=== PATIENT | female | born 1955 | race Hispanic/Latino ===

== ENCOUNTER 2021-01-08 16:54 | Emergency (ER) | payer SELFPAY ==
[2021-01-08 19:08] LABS: Bacteria,Urine 1+ /HPF (Negative); Bilirubin,Urine NEG (Negative); Blood,Urine NEG (Negative); Color,Urine Yellow (Yellow); Mucus,Urine FEW /HPF; Protein,Urine <15 mg/dL mg/dL (Negative); Urobilinogen,Urine < 2.0 mg/dL (<2.0)
--- NOTE | 2021-01-08 19:19 | XRay Report ---
Lumbar spine-3 views INDICATION: low back pain. COMPARISON: None. IMPRESSION: Mild levoscoliosis centered at L1. Grade 1 anterolisthesis of L4 on L5 and grade 1 retro listhesis of L1 on L2. 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 No acute osseous or soft tissue abnormality. Signer Name: Ryan Beltran MD Signed: 01/08/2021 7:15 PM Workstation Name: [id number]
[2021-01-08] MEDS ORDERED: CYCLOBENZAPRINE 10 MG TAB PO ONE (19:30)
[2021-01-08] MEDS ORDERED: dexAMETHasone 4 MG/ML VIAL IM ONE (19:30)
--- NOTE | 2021-01-08 19:33 | Emergency Department Report ---
ED Back Pain/Injury HPI - General Chief Complaint: Back Pain/Injury Stated Complaint: BACK SPASM Time Seen by Provider: 01/08/21 18:40 Source: patient Mode of arrival: Ambulatory Limitations: No Limitations - History of Present Illness Initial Comments: Patient is a 65-year-old female presents emergency room with complaints of bilateral lower back pain that began 2 weeks ago. She describes it as a back ache and states that she has back spasms. She denies any fall or injury. She states a week ago she went to [facility] and was given a prescription for Tylenol with codeine and Robaxin and states that she took all the medication but continues to have the pain. She denies any fever, nausea, vomiting, diarrhea, abdominal pain, numbness, weakness, bowel or bladder incontinence, radiation of the pain, saddle numbness, urinary symptoms. Past medical history depression. No allergies to medications. - Related Data Previous Rx's Medication Instructions Recorded Last Taken Type Loratadine (Nf) [Claritin (Nf)] 10 mg PO DAILY #30 tablet 03/17/14 Unknown Rx Naproxen [Naprosyn] 250 mg PO BID #20 tablet 03/17/14 Unknown Rx Nystatin [Nystop Powder] 1 applic TP QDAY #1 box 03/17/14 Unknown Rx Meloxicam [Mobic] 7.5 mg PO QDAY #20 tablet 01/08/21 Unknown Rx methOCARBAMOL [Robaxin TAB] 500 mg PO BID PRN #20 tab 01/08/21 Unknown Rx traMADoL [Ultram 50 MG tab] 50 mg PO Q6HR PRN #12 tablet 01/08/21 Unknown Rx Allergies Allergy/AdvReac Type Severity Reaction Status Date / Time Penicillins Allergy Unknown Verified 12/06/13 23:41 ED Review of Systems ROS: Stated complaint: BACK SPASM Other details as noted in HPI Comment: All other systems reviewed and negative ED Past Medical Hx - Past Medical History Previous Medical History?: Yes Hx Psychiatric Treatment: Yes (depression) Additional medical history: states tetanus vaccine is up to date - Surgical History Past Surgical History?: Yes Additional Surgical History: TUBAL LIGATION - Social History Smoking Status: Never Smoker Substance Use Type: None - Medications Home Medications: Home Medications Medication Instructions Recorded Confirmed Last Taken Type Loratadine (Nf) [Claritin (Nf)] 10 mg PO DAILY #30 tablet 03/17/14 Unknown Rx Naproxen [Naprosyn] 250 mg PO BID #20 tablet 03/17/14 Unknown Rx Nystatin [Nystop Powder] 1 applic TP QDAY #1 box 03/17/14 Unknown Rx Meloxicam [Mobic] 7.5 mg PO QDAY #20 tablet 01/08/21 Unknown Rx methOCARBAMOL [Robaxin TAB] 500 mg PO BID PRN #20 tab 01/08/21 Unknown Rx traMADoL [Ultram 50 MG tab] 50 mg PO Q6HR PRN #12 tablet 01/08/21 Unknown Rx ED Physical Exam - General Limitations: No Limitations General appearance: alert, in no apparent distress - Head Head exam: Present: atraumatic, normocephalic - Eye Eye exam: Present: normal appearance - ENT ENT exam: Present: mucous membranes moist - Neck Neck exam: Present: normal inspection, full ROM. Absent: tenderness, meningismus - Respiratory Respiratory exam: Present: normal lung sounds bilaterally. Absent: respiratory distress, wheezes, rales, rhonchi, stridor, chest wall tenderness, accessory muscle use, decreased breath sounds, prolonged expiratory - Cardiovascular Cardiovascular Exam: Present: regular rate, normal rhythm, normal heart sounds. Absent: systolic murmur, diastolic murmur, rubs, gallop - Back Exam Back exam: Present: normal inspection, full ROM, paraspinal tenderness (bilateral lumbar paraspinal muscular ttp, no midline C-spine, T-spine or L- spine ttp, no step offs, no deformities). Absent: vertebral tenderness - Neurological Exam Neurological exam: Present: alert, oriented X3, CN II-XII intact, normal gait. Absent: motor sensory deficit - Psychiatric Psychiatric exam: Present: normal affect, normal mood - Skin Skin exam: Present: warm, dry, intact ED Course Vital Signs 01/08/21 01/08/21 17:07 20:30 Temperature 98.1 F 98 F Pulse Rate 71 65 Respiratory 16 16 Rate Blood Pressure 162/87 Blood Pressure 138/81 [Left] O2 Sat by Pulse 96 100 Oximetry ED Medical Decision Making - Lab Data Lab Results 01/08/21 Range/Units Unknown Urine Color Yellow (Yellow) Urine Turbidity Clear (Clear) Urine pH 6.0 (5.0-7.0) Ur Specific [place] 1.008 (1.003-1.030) Urine Protein <15 mg/dl (Negative) mg/dL Urine Glucose (UA) Neg (Negative) mg/dL Urine Ketones Neg (Negative) mg/dL Urine Blood Neg (Negative) Urine Nitrite Neg (Negative) Urine Bilirubin Neg (Negative) Urine Urobilinogen < 2.0 (<2.0) mg/dL Ur Leukocyte Esterase Neg (Negative) Urine WBC (Auto) 2.0 (0.0-6.0) /HPF Urine RBC (Auto) 2.0 (0.0-6.0) /HPF U Epithel Cells (Auto) 1.0 (0-13.0) /HPF Urine Bacteria (Auto) 1+ (Negative) /HPF Urine Mucus Few /HPF - Radiology Data Radiology results: report reviewed Ordering Physician: IRINA GILLETTE Date of Service: 01/08/21 Procedure(s): XR spine lumbosacral 2-3V Accession Number(s): [id number] cc: IRINA GILLETTE Fluoro Time In Minutes: Lumbar spine-3 views INDICATION: low back pain. COMPARISON: None. IMPRESSION: Mild levoscoliosis centered at L1. Grade 1 anterolisthesis of L4 on L5 and grade 1 retrolisthesis of L1 on L2. 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 No acute osseous or soft tissue abnormality. Signer Name: Ryan Beltran MD Signed: 01/08/2021 7:15 PM Workstation Name: [id number] Transcribed By: JW Dictated By: Ryan Beltran MD Electronically Authenticated By: Ryan Beltran MD Signed Date/Time: 01/08/211914 DD/ 13 TD/TT: - Medical Decision Making Patient is a 65-year-old female presents emergency room with complaints of bilateral lower back pain that began 2 weeks ago. She describes it as a back ache and states that she has back spasms. She denies any fall or injury. She states a week ago she went to [facility] and was given a prescription for Tylenol with codeine and Robaxin and states that she took all the medication but continues to have the pain. She denies any fever, nausea, vomiting, diarrhea, abdominal pain, numbness, weakness, bowel or bladder incontinence, radiation of the pain, saddle numbness, urinary symptoms. Past medical history depression. No allergies to medications. vss. on exam: bilateral lumbar paraspinal muscular ttp, no midline C-spine, T-spine or L-spine ttp, no step offs, no deformities, no focal neuro deficits. X-ray lumbar spine: IMPRESSION: Mild levoscoliosis centered at L1. Grade 1 anterolisthesis of L4 on L5 and grade 1 retrolisthesis of L1 on L2. 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 No acute osseous or soft tissue abnormality. UA is within normal limits. Medications given while in the emergency department as she did not drive with improvement of symptoms. Discussed all results with patient and answer questions. Discussed the importance of orthopedic/spine and primary care follow-up. Discussed return precautions. Patient has no red flag warning signs of low back pain, no trauma, no unexplained weight loss, no fever, no IV drug use, no steroid use, no history of cancer, no neuro deficits. Patient given prescription for medications. Advised patient Please take medication as prescribed. Do not drive or operate machinery while taking muscle relaxer or severe pain medication. Follow-up with a primary care doctor. Follow-up with orthopedic/spine doctor. Return to emergency room for new or worsened symptoms. May use ice pack, heating pad, rest, and salt bath. Critical care attestation.: If time is entered above; I have spent that time in minutes in the direct care of this critically ill patient, excluding procedure time. ED Disposition Clinical Impression: Anterolisthesis, Levoscoliosis Low back pain Qualifiers: Chronicity: acute Back pain laterality: bilateral Sciatica presence: without sciatica Qualified Code(s): M54.5 - Low back pain DDD (degenerative disc disease) Qualifiers: Spinal region: lumbosacral Qualified Code(s): M51.37 - Other intervertebral disc degeneration, lumbosacral region Disposition: - TO HOME OR SELFCARE Is pt being admited?: No Does the pt Need Aspirin: No Condition: Stable Instructions: Acute Back Pain, Adult, Herniated Disk, [id number], Degenerative Disk Disease Additional Instructions: Please take medication as prescribed. Do not drive or operate machinery while taking muscle relaxer or severe pain medication. Follow-up with a primary care doctor. Follow-up with orthopedic/spine doctor. Return to emergency room for new or worsened symptoms. May use ice pack, heating pad, rest, and salt bath. Prescriptions: Meloxicam [Mobic] 7.5 mg PO QDAY #20 tablet methOCARBAMOL [Robaxin TAB] 500 mg PO BID PRN #20 tab PRN Reason: muscle spasm/pain traMADoL [Ultram 50 MG tab] 50 mg PO Q6HR PRN #12 tablet PRN Reason: Pain , Severe (7-10) Referrals: DILLAN BURGESS MD [Staff Physician] - 3-5 Days [facility] [Provider Group] - 3-5 Days KE LEE II, MD [Staff Physician] - 3-5 Days [facility] [Provider Group] - 3-5 Days Time of Disposition: 19:31 Print Language: MALAWIAN
[2021-01-08 21:39] VITALS: BP 138/81
== END 2021-01-08 20:30 | disposition home or self-care (01) ==
LOC: ED 16:54
DX: M51.36 Other intervertebral disc degeneration, lumbar region (principal); M43.16 Spondylolisthesis, lumbar region; M41.86 Other forms of scoliosis, lumbar region; F32.9 Major depressive disorder, single episode, unspecified; Z98.51 Tubal ligation status; Z79.899 Other long term (current) drug therapy; Z88.0 Allergy status to penicillin
CPT/HCPCS: 72100; 81001; 96372; 99283; J1100